=== PATIENT | female | born 1985 | race African-American/Black ===

== ENCOUNTER 2016-06-16 05:00 | Inpatient (IN) | payer OTHER ==
[2016-06-16] VITALS (43 sets, daily range): BP systolic 94–132; BP diastolic 53–80
[~2016-06-16] VITALS: Ht 172.7 cm; Wt 80.3 kg
[2016-06-16] MEDS ORDERED: AMPICILLIN INJECTION 2,000 MG in NS (IVPB) 50 ML IV ONE (05:51)
[2016-06-16] MEDS ORDERED: LACTATED RINGERS 1,000 ML IV SCH ×2 (05:51→10:16)
[2016-06-16] MEDS: D5 LR IV SOLUTION 1,000 ML IV SCH ×2 (05:55→13:00)
[2016-06-16] MEDS ORDERED: MISOPROSTOL 100 MCG (CYTOTEC) TAB PV ONE (06:00)
[2016-06-16] MEDS ORDERED: CATHETER FLUSH 10 ML SYR IV SCH ×2 (06:00→22:00)
[2016-06-16] MEDS ORDERED: MINERAL OIL CONCENTRATE 99.9% 15 ML UDC TOP PRN (06:00)
[2016-06-16] MEDS ORDERED: NS (IVPB) 50 ML ONE (06:05)
[2016-06-16] MEDS ORDERED: AMPICILLIN 2000 MG INJECTION (IM/IV) ONE (06:05)
[2016-06-16 06:18] LABS: BASOPHILS % (AUTO) 0 % (0-10); EOSINOPHILS # (AUTO) 0.2 10^3/uL (0.0-0.3); EOSINOPHILS % (AUTO) 3 % (0-10); LYMPHOCYTES # (AUTO) 1.9 X 10^3 (1.0-4.0); LYMPHOCYTES % (AUTO) 28 % (12-44); MEAN CORPUSCULAR HEMOGLOBIN 35 PG (25-34); MEAN CORPUSCULAR HGB CONC 35 G/DL (32-36); MEAN CORPUSCULAR VOLUME 100 FL (80-99); MEAN PLATELET VOLUME 11.7 FL (7.4-10.4); MONOCYTES # (AUTO) 0.5 X 10^3 (0.0-1.0); MONOCYTES % (AUTO) 7 % (0-12); NEUTROPHILS # (AUTO) 4.1 X 10^3 (1.8-7.8); NEUTROPHILS % (AUTO) 62 % (42-75); PLATELET COUNT 126 10^3/uL (130-400); RED BLOOD COUNT 3.22 10^6/uL (4.35-5.85); RED CELL DISTRIBUTION WIDTH 12.1 % (10.0-14.5); WHITE BLOOD COUNT 6.7 10^3/uL (4.3-11.0)
[2016-06-16] MEDS ORDERED: TERBUTALINE INJ 1 MG/ML (BRETHINE) AMP SC ONE (06:30)
--- NOTE | 2016-06-16 08:16 | History & Physical-OB ---
OB - Chief Complaint & HPI Date Date of Admission: Date of Admission: Jun 16, 2016 at 05:00 Chief Complaint/History OB-Reason for Admission/Chief: Induction of Labor Hx : 3 Hx Para: 2 Expected Date of Delivery: Jun 16, 2016 Gestational Age in Weeks: 40 Gestational Age in Days: 0 Indication for induction: other Other reason for admission: @ 40w0d by L=11 with hepatitis B (likely chronic, elevated transaminases in second/third trimester), mild thrombocytopenia - likely ITP ( stable at 38 wga), GBSuria, anemia. followed by Dr. Montgomery in [place] for Hep B. Had hep B with last delivery (in [place]) Fetus active no LOF VB CTX. Here for IOL for ITP/hep B History of Labs A+ Antibody neg RI Hep B positive, mildly elevated LFTs (stable, AST/ALT 60s and 70s at 38wga) HIV neg RPR NR Hep C neg GC/CT neg/neg GBSuria Allergies and Home Medications Allergies Coded Allergies: No Known Drug Allergies (Unverified , 06/16/16) OB - History Hx of Present Care: Yes Ultrasounds: Normal mid trimester US Obstetrical Complications: Other (anemia, GBSuria) Medical Complications: Other (chronic hep b, ITP) Information Induced Hypertension: No Maternal Gestational Diabetes: No Hemorrhage: No Obstetrical History Hx : 3 Hx Para: 2 Delivery History Adverse Rxn to Tranfusion: No Patient Past Medical History see above Social History/Family History HIV/AIDS: No Recent Infectious Disease Expo: No Sexually Transmitted Disease: No Alcohol Use: Denies Use Recreational Drug Use: No Immunizations Hepatitis A: Yes Hepatitis B: No Tetanus Booster (TDap): Less than 5yrs Rubella: immune RPR/VDRL: Negative GBS Status: Positive HBsAG: Positive OB - Admission Exam Physical Exam Vitals: see nursing documentation HEENT: NCAT Heart: Rhythm Normal Lungs: Clear Abdomen: Gravid Cervical Dilatation: 2cm Effacement: 0% Station: -2 Membranes: Intact Heart Rate: 140's Accelerations: Accelerations Present Decelerations: Variable Decelerations (one variable to 70s, 20 seconds in length, isolated) Short Term Variability: Present Accounting Practice Manager Variability: Average (6-25) Contractions on Admission: >10 Minutes Apart Chi Scoring Tool (Modified) Dilation (cm): 1-2cm (1) Effacement (%): 0-30% (0) Descent/Station: -2 (1) Cervix Consistency: Medium(1) Cervix Position: Middle/Mid-Position (1) Add 1 point for: Each previous vaginal delivery (1) Chi Score: 6 Labs Laboratory Tests Test 06/16/16 06:04 Range/Units White Blood Count 6.7 4.3-11.0 10^3/uL Red Blood Count 3.22 L 4.35-5.85 10^6/uL Hemoglobin 11.2 L 11.5-16.0 G/DL Hematocrit 32 L 35-52 % Mean Corpuscular Volume 100 H 80-99 FL Mean Corpuscular Hemoglobin 35 H 25-34 PG Mean Corpuscular Hemoglobin Concent 35 32-36 G/DL Red Cell Distribution Width 12.1 10.0-14.5 % Platelet Count 126 L 130-400 10^3/uL Mean Platelet Volume 11.7 H 7.4-10.4 FL Neutrophils (%) (Auto) 62 42-75 % Lymphocytes (%) (Auto) 28 12-44 % Monocytes (%) (Auto) 7 0-12 % Eosinophils (%) (Auto) 3 0-10 % Basophils (%) (Auto) 0 0-10 % Neutrophils # (Auto) 4.1 1.8-7.8 X 10^3 Lymphocytes # (Auto) 1.9 1.0-4.0 X 10^3 Monocytes # (Auto) 0.5 0.0-1.0 X 10^3 Eosinophils # (Auto) 0.2 0.0-0.3 10^3/uL Basophils # (Auto) 0.0 0.0-0.1 10^3/uL OB - Assessment/Plan/Diagnosis Plan Plan: Induction Other Plan 31 y/o @ 40w0d here for IOL Chronic Hep B with elevated transaminases Thrombocytopenia GBSuria Anemia Cytotec for cervical ripening, will plan pitocin following this ASVD Last viral load 10,000. Per Dr. Montgomery, no anti-viral therapy indicated at this time, will f/u with him in June 2016 KATIE SWENSON MD Jun 16, 2016 08:16
[2016-06-16] MEDS ORDERED: CALC600T12 PO (09:16)
[2016-06-16] MEDS ORDERED: SUFENTA 0.6MCG/ML BUPIVA 0.125 100 ML ONE (09:16)
[2016-06-16] MEDS ORDERED: PREN-53 PO (09:16)
[2016-06-16] MEDS ORDERED: AMPICILLIN INJECTION 1,000 MG in NS (IVPB) 50 ML IV SCH (10:00)
[2016-06-16] MEDS ORDERED: NALOXONE 0.4 MG/ML 1 ML (NARCAN) VIAL IV PRN ×2 (10:30)
[2016-06-16] MEDS ORDERED: OXYTOCIN/NORMAL SALINE 500 ML IV SCH ×2 (10:30→15:18)
[2016-06-16] MEDS ORDERED: diphenhydrAMINE 50 MG/ML INJ (BENADRYL) IV PRN (10:30)
[2016-06-16] MEDS ORDERED: EPIDURAL (SUFENTA 0.6MCG/ML BUPIVA 0.125%) 100 ML BAG EPI SCH (10:30)
[2016-06-16] MEDS ORDERED: METOCLOPRAMIDE INJ 10 MG/2 ML (REGLAN) IV PRN (10:30)
[2016-06-16] MEDS ORDERED: ONDANSETRON 4 MG/2 ML (SDV) Z0FRAN IV PRN (10:30)
--- NOTE | 2016-06-16 11:57 | Progress Note-Standard ---
Standard Progress Note Progress Notes/Assess & Plan Date Seen 06/16/16 Assess & Plan/Chief Complaint Labor Update Note Comfortable with epidural Vital Sign - Last 12Hours 06/16/16 06/16/16 06/16/16 06/16/16 05:30 06:30 07:00 07:25 Temp 98.1 Pulse 81 79 Resp 20 20 B/P (MAP) 113/61 107/59 O2 Delivery Room Air Room Air Room Air Room Air 06/16/16 06/16/16 06/16/16 06/16/16 07:30 08:30 09:30 09:45 Temp 98.2 Pulse 77 80 77 80 Resp 16 16 18 18 B/P (MAP) 109/60 102/58 108/58 117/56 O2 Delivery Room Air Room Air Room Air Room Air 06/16/16 06/16/16 06/16/16 06/16/16 09:50 09:55 10:00 10:05 Pulse 81 86 86 70 Resp 18 18 18 18 B/P (MAP) 123/80 132/62 117/56 Pulse Ox 100 100 100 100 O2 Delivery Room Air Room Air Room Air Room Air 06/16/16 06/16/16 06/16/16 06/16/16 10:10 10:13 10:15 10:18 Pulse 92 76 75 75 Resp 18 18 18 18 B/P (MAP) 115/64 101/58 110/58 115/57 Pulse Ox 100 100 100 100 O2 Delivery Room Air Room Air Room Air Room Air 06/16/16 06/16/16 06/16/16 06/16/16 10:21 10:25 10:28 10:30 Pulse 72 75 82 85 Resp 18 18 18 18 B/P (MAP) 117/62 114/58 101/66 116/58 Pulse Ox 100 100 100 100 O2 Delivery Room Air Room Air Room Air Room Air 06/16/16 06/16/16 06/16/16 06/16/16 10:35 10:40 10:45 11:00 Pulse 77 79 74 73 Resp 18 18 18 18 B/P (MAP) 118/58 116/67 114/62 115/53 Pulse Ox 100 100 100 100 O2 Delivery Room Air Room Air Room Air Room Air SVE 5/40/-2, AROM clear fluid FHR 140/mod savita/reactive TOCO 3/10 dysfunctional 31 y/o @ 40w0d here for IOL Hep B GBSuria s/p cytotec one dose, now pit/arom for IOL epidural in place continue ampicillin ASVD Labs Laboratory Tests 06/16/16 06:04 KATIE SWENSON MD Jun 16, 2016 11:57
[2016-06-16] MEDS ORDERED: DOCU-143 PO (12:54)
[2016-06-16] MEDS ORDERED: IBUP-1773 PO (12:54)
[2016-06-16] MEDS ORDERED: FERR325C PO (12:54)
[2016-06-16] MEDS ORDERED: LIDOCAINE/EPI 1%-1:200,000 (XYLOCAINE) 30 ML VIAL ONE (13:53)
--- NOTE | 2016-06-16 15:11 | OB Labor & Delivery Record ---
Vag Delivery Note Vag Delivery Note Date of Delivery: 06/16/16 Preoperative Diagnosis: Abril Solares is a 31 y/o @ 40w0d with IOL for chronic hepatitis B virus, GBSuria, thrombocytopenia Postoperative Diagnosis: Same Surgeon: Allison Lentz MD Anesthesia: Epidural Delivery Type: Spontaneous vaginal delivery Findings: Viable female , apgars 8/9, weight [id number] Lacerations: second degree perineal Intact placenta with 3 vessel cord. Nuchal cord x 1, no body cord or shoulder dystocia Estimated Blood Loss: 400 ml Complications: None Condition: Stable Description of Procedure: The patient is a 31 y/o @ 40w0d who presented for scheduled IOL. She was admitted and informed consent was obtained. Her labor course was remarkable for cytotec for cervical ripening, epidural for analgesia, pitocin and AROM with clear fluid. She progressed to complete dilatation and began to push. She was then set up for delivery. The infant's head was delivered atraumatically in the occiput anterior position. The shoulders and remainder of the 's body were then delivered without difficulty. Upon delivery, the head was held below the level of the perineum and the mouth and nares were bulb suctioned. The cord was doubly clamped and cut after the was placed on her mother's chest where she promptly received hepatitis B immune globulin and hepatitis B vaccination. An intact placenta with 3-vessel cord delivered via Brigitte and there was found to be minimal bleeding. Vigorous fundal massage was performed and the fundus was found to be firm. IV oxytocin was given. Examination of the vagina and perineum revealed a second degree perineal laceration repaired in the usual fashion with 3-0 vicryl suture. Following the repair, sponge, instrument and needle counts were correct. Mom and baby were both in stable condition in the labor suite. Vitals - Labs Vital Signs - I&O Vital Signs Date Time Temp Pulse Resp B/P (MAP) Pulse Ox O2 Delivery O2 Flow Rate FiO2 06/16/16 13:30 77 18 116/62 99 Room Air 06/16/16 13:15 81 18 116/59 100 Room Air 06/16/16 13:00 68 18 118/63 100 Room Air 06/16/16 12:45 68 18 109/61 100 Room Air 06/16/16 12:30 71 18 107/60 100 Room Air 06/16/16 12:15 99.3 69 18 113/58 100 Room Air 06/16/16 12:00 79 18 114/57 100 Room Air 06/16/16 11:45 71 18 106/59 100 Room Air 06/16/16 11:30 66 18 107/60 100 Room Air 06/16/16 11:15 72 18 103/58 100 Room Air 06/16/16 11:00 73 18 115/53 100 Room Air 06/16/16 10:45 74 18 114/62 100 Room Air 06/16/16 10:40 79 18 116/67 100 Room Air 06/16/16 10:35 77 18 118/58 100 Room Air 06/16/16 10:30 85 18 116/58 100 Room Air 06/16/16 10:28 82 18 101/66 100 Room Air 06/16/16 10:25 75 18 114/58 100 Room Air 06/16/16 10:21 72 18 117/62 100 Room Air 06/16/16 10:18 75 18 115/57 100 Room Air 06/16/16 10:15 75 18 110/58 100 Room Air 06/16/16 10:13 76 18 101/58 100 Room Air 06/16/16 10:10 92 18 115/64 100 Room Air 06/16/16 10:05 70 18 117/56 100 Room Air 06/16/16 10:00 86 18 100 Room Air 06/16/16 09:55 86 18 132/62 100 Room Air 06/16/16 09:50 81 18 123/80 100 Room Air 06/16/16 09:45 80 18 117/56 Room Air 06/16/16 09:30 77 18 108/58 Room Air 06/16/16 08:30 80 16 102/58 Room Air 06/16/16 07:30 98.2 77 16 109/60 Room Air 06/16/16 07:25 Room Air 06/16/16 07:00 Room Air 06/16/16 06:30 79 20 107/59 Room Air 06/16/16 05:30 98.1 81 20 113/61 Room Air I & O 06/16/16 07:00 Intake Total 500 ml Balance 500 ml Labs Laboratory Tests 06/16/16 06:04: White Blood Count 6.7, Red Blood Count 3.22L, Hemoglobin 11.2L, Hematocrit 32L, Mean Corpuscular Volume 100H, Mean Corpuscular Hemoglobin 35H, Mean Corpuscular Hemoglobin Concent 35, Red Cell Distribution Width 12.1, Platelet Count 126L, Mean Platelet Volume 11.7H, Neutrophils (%) (Auto) 62, Lymphocytes (%) (Auto) 28 , Monocytes (%) (Auto) 7, Eosinophils (%) (Auto) 3, Basophils (%) (Auto) 0, Neutrophils # (Auto) 4.1, Lymphocytes # (Auto) 1.9, Monocytes # (Auto) 0.5, Eosinophils # (Auto) 0.2, Basophils # (Auto) 0.0 ALLISON LENTZ MD Jun 16, 2016 15:11
--- NOTE | 2016-06-16 15:12 | Discharge Inst-Women's Service ---
Discharge Inst-Women's Serv Depart Medication/Instructions New, Converted or Re-Newed RX: RX on Chart Final Diagnosis TIUP, chronic hepatitis B Consults/Follow Up Additional Follow Up: Yes Orders/Referrals [address] Lentz Activity Activity: Activity as Tolerated Driving Instructions: You May Drive NO SMOKING: NO SMOKING Nothing Inside Vagina: No Douching, No [place], No Tampons Diet Discharge Diet: No Restrictions Symptoms to Report to : Bleeding Excessive, Pain Increased, Fever Over 101 Degrees F, Pain/Pressure in Chest, Vaginal Bleeding Increase, Dizziness/Fainting , Nausea/Vomiting, Shortness of Breath For Any Problems or Questions: Contact Your Physician, Go to Emergency Room KATIE LENTZ MD Jun 16, 2016 15:12
[2016-06-16] MEDS ORDERED: WITCH HAZEL(TUCKS) 40 EA JAR TOP PRN (15:30)
[2016-06-16] MEDS ORDERED: MEASLES,MUMPS,RUBELLA 1 EA INJ SQ ONE (15:30)
[2016-06-16] MEDS ORDERED: BENZOCAINE/MENTHOL (DERMOPLAST) 56 ML CAN TP PRN (15:30)
[2016-06-16] MEDS: DOCUSATE SODIUM 100 MG (COLACE) CAP PO SCH (21:50)
[2016-06-16] MEDS: IBUPROFEN 600 MG (MOTRIN) TAB PO SCH (21:50)
[2016-06-17 00:05] VITALS: BP 94/53
[2016-06-17 04:05] VITALS: BP 108/68
[2016-06-17] MEDS: IBUPROFEN 600 MG (MOTRIN) TAB PO SCH (04:06)
[2016-06-17 05:42] LABS: BASOPHILS % (AUTO) 0 % (0-10); EOSINOPHILS # (AUTO) 0.2 10^3/uL (0.0-0.3); EOSINOPHILS % (AUTO) 3 % (0-10); LYMPHOCYTES # (AUTO) 2.4 X 10^3 (1.0-4.0); LYMPHOCYTES % (AUTO) 26 % (12-44); MEAN CORPUSCULAR HEMOGLOBIN 34 PG (25-34); MEAN CORPUSCULAR HGB CONC 34 G/DL (32-36); MEAN CORPUSCULAR VOLUME 100 FL (80-99); MEAN PLATELET VOLUME 11.9 FL (7.4-10.4); MONOCYTES # (AUTO) 0.6 X 10^3 (0.0-1.0); MONOCYTES % (AUTO) 7 % (0-12); NEUTROPHILS % (AUTO) 65 % (42-75); PLATELET COUNT 106 10^3/uL (130-400); RED BLOOD COUNT 3.02 10^6/uL (4.35-5.85); RED CELL DISTRIBUTION WIDTH 11.9 % (10.0-14.5); WHITE BLOOD COUNT 9.3 10^3/uL (4.3-11.0)
[2016-06-17] MEDS ORDERED: PRENATAL VITAMIN 1 EA TAB PO SCH (07:00)
[2016-06-17 07:45] VITALS: BP 96/63
[2016-06-17] MEDS ORDERED: FERROUS SULF 325 MG (IRON) TAB PO SCH (09:00)
[2016-06-17] MEDS: DOCUSATE SODIUM 100 MG (COLACE) CAP PO SCH (09:00)
--- NOTE | 2016-06-17 11:52 | Progress Note-Standard ---
Standard Progress Note Progress Notes/Assess & Plan Progress/Assessment & Plan Patient doing well PPD 1 NVD. Reports cramping with , but otherwise doing well. Ambulating and voiding freely. Vital Sign - Last 24 Hours 06/16/16 06/16/16 06/16/16 06/16/16 12:00 12:15 12:30 12:45 Temp 99.3 Pulse 79 69 71 68 Resp 18 18 18 18 B/P (MAP) 114/57 113/58 107/60 109/61 Pulse Ox 100 100 100 100 O2 Delivery Room Air Room Air Room Air Room Air 06/16/16 06/16/16 06/16/16 06/16/16 13:00 13:15 13:30 13:45 Temp 97.5 Pulse 68 81 77 78 Resp 18 18 18 18 B/P (MAP) 118/63 116/59 116/62 122/61 Pulse Ox 100 100 99 100 O2 Delivery Room Air Room Air Room Air Room Air 06/16/16 06/16/16 06/16/16 06/16/16 14:00 14:15 14:30 14:43 Pulse 71 76 87 87 Resp 18 18 18 18 B/P (MAP) 117/64 109/64 114/67 Pulse Ox 100 100 100 100 O2 Delivery Room Air Room Air Room Air Room Air 06/16/16 06/16/16 06/16/16 06/16/16 14:51 14:56 15:11 15:26 Temp 99.0 98.3 Pulse 73 71 69 72 Resp 18 18 18 18 B/P (MAP) 113/57 112/57 114/61 118/57 O2 Delivery Room Air Room Air Room Air Room Air 06/16/16 06/16/16 06/16/16 06/17/16 15:55 16:24 22:00 00:05 Temp 98.3 97.8 Pulse 68 74 69 73 Resp 18 18 18 18 B/P (MAP) 122/58 111/55 111/69 94/53 Pulse Ox 97 99 O2 Delivery Room Air Room Air Room Air 06/17/16 04:05 Temp 97.6 Pulse 63 Resp 18 B/P (MAP) 108/68 Pulse Ox 97 Intake and Output 06/16/16 06/16/16 06/17/16 15:00 23:00 07:00 Intake Total 2000 ml 500 ml Balance 2000 ml 500 ml Laboratory Tests Test 06/17/16 05:25 Range/Units White Blood Count 9.3 4.3-11.0 10^3/uL Red Blood Count 3.02 L 4.35-5.85 10^6/uL Hemoglobin 10.4 L 11.5-16.0 G/DL Hematocrit 30 L 35-52 % Mean Corpuscular Volume 100 H 80-99 FL Mean Corpuscular Hemoglobin 34 25-34 PG Mean Corpuscular Hemoglobin Concent 34 32-36 G/DL Red Cell Distribution Width 11.9 10.0-14.5 % Platelet Count 106 L 130-400 10^3/uL Mean Platelet Volume 11.9 H 7.4-10.4 FL Neutrophils (%) (Auto) 65 42-75 % Lymphocytes (%) (Auto) 26 12-44 % Monocytes (%) (Auto) 7 0-12 % Eosinophils (%) (Auto) 3 0-10 % Basophils (%) (Auto) 0 0-10 % Neutrophils # (Auto) 6.0 1.8-7.8 X 10^3 Lymphocytes # (Auto) 2.4 1.0-4.0 X 10^3 Monocytes # (Auto) 0.6 0.0-1.0 X 10^3 Eosinophils # (Auto) 0.2 0.0-0.3 10^3/uL Basophils # (Auto) 0.0 0.0-0.1 10^3/uL Uterine fundus firm and palpated below umbilicus Diagnosis: PPD 1 NVD Hep B GBSuria P: DC later today Patient to room in until dismissed TYSON AMBROSIO DO Jun 17, 2016 11:52 am
[2016-06-17 13:00] VITALS: BP 138/72
--- NOTE | 2016-06-17 14:06 | Anesthesia-Regional Post-Op ---
Regional Patient Condition Mental Status: Alert, Oriented x3 Circulation: Same as Pre-Op Headache: Absent Sensation: Full Recovery Motor Block: Absent Post Op Complications Complications None Follow Up Care/Instructions Patient Instructions None needed. Anesthesia/Patient Condition Patient is doing well, no complaints, stable vital signs, no apparent adverse anesthesia problems. No complications reported per nursing. D/C home per [facility] Criteria: Yes HALLIE MORALES CRNA Jun 17, 2016 14:06
== END 2016-06-17 13:20 | disposition home or self-care (01) | DRG 774 ==
LOC: LDRP 05:00
PROVIDERS: ADMIT Obstetrics & Gynecology; ATTEND Obstetrics & Gynecology
PROC: 10E0XZZ Delivery of Products of Conception, External Approach (ICD-10-PCS; principal; 2016-06-16)
PROC: 0KQM0ZZ Repair Perineum Muscle, Open Approach (ICD-10-PCS; 2016-06-16)
PROC: 3E0DXGC Introduction of Other Therapeutic Substance into Mouth and Pharynx, External Approach (ICD-10-PCS; 2016-06-16)
DX: O98.42 Viral hepatitis complicating childbirth (principal); B19.10 Unspecified viral hepatitis B without hepatic coma; O99.13 Other diseases of the blood and blood-forming organs and certain disorders involving the immune mechanism complicating the puerperium; D69.3 Immune thrombocytopenic purpura; O70.1 Second degree perineal laceration during delivery; O69.81X0 Labor and delivery complicated by cord around neck, without compression, not applicable or unspecified; O99.02 Anemia complicating childbirth; D64.9 Anemia, unspecified; Z37.0 Single live birth; Z3A.40 40 weeks gestation of pregnancy
CPT/HCPCS: 36415; 85025; 86850; 86900; 86901; 88307

== ENCOUNTER 2017-07-14 10:50 | Emergency (ER) | payer SELFPAY ==
[~2017-07-14] VITALS: Ht 170.2 cm; Wt 88.9 kg
[~2017-07-14 10:50] MED LIST: CALC600T12 PO; DOCU-143 PO; FERR325C PO; IBUP-1773 PO; PREN-53 PO
--- NOTE | 2017-07-14 11:08 | ED General ---
General Stated Complaint: SYNCOPE Source of Information: Patient Exam Limitations: No Limitations History of Present Illness Date Seen by Provider: July 14, 2017 Time Seen by Provider: 11:05 Initial Comments to ER per EMS from [facility] with reports of syncope. Patients tawana IUD fell out last month and it was replaced at [facility] on the of this month. For the past 2 days she's had heavy vaginal bleeding and some mild suprapubic cramping. She has used 5 super tampons in the past 24 hours. She's been passing clots. She has felt lightheaded and dizzy for the past 2 days. She was evaluated at [facility] and then sent to the pharmacy. She was sitting down and her name was called at the pharmacy that she stood up. A few seconds after standing she collapsed to the floor. EMS was summoned and she presents to the emergency room alert and oriented and states that she feels fine and just wants to go home. Timing/Duration: 1-2 Days Severity: Moderate Associated Systoms: No Chest Pain, No Cough, No Diaphoresis, No Fever/Chills, No Headaches, No Malaise, No Nausea/Vomiting, No Rash; Syncope Allergies and Home Medications Allergies Coded Allergies: No Known Drug Allergies (Unverified , 06/16/16) Home Medications Calcium Carbonate 600 Mg Tablet, Unknown Dose PO DAILY, (Reported) Docusate Sodium 100 Mg Capsule, 100 MG PO BID PRN for CONSTIPATION-1ST LINE Prescribed by: KATIE SWENSON on 06/16/16 1254 Ferrous Sulfate 325 Mg Capsule.er, 325 MG PO DAILY Prescribed by: KATIE SWENSON on 06/16/16 1254 Ibuprofen 600 Mg Tablet, 600 MG PO Q6H Prescribed by: KATIE SWENSON on 06/16/16 1254 Vzy116/Iron Fumarate/FA/Dss 1 Each Tablet, 1 EACH PO DAILY, (Reported) Patient Home Medication List Home Medication List Reviewed: Yes Review of Systems Constitutional: see HPI EENTM: see HPI Respiratory: no symptoms reported Cardiovascular: no symptoms reported Genitourinary: no symptoms reported Musculoskeletal: no symptoms reported Skin: no symptoms reported Psychiatric/Neurological: No Symptoms Reported Hematologic/Lymphatic: No Symptoms Reported Past Qdcmotl-Oiwqqi-Uvohcr Hx Patient Social History Recent Hopitalizations: No Immunizations Up To Date Tetanus Booster (TDap): Less than 5yrs PED Vaccines UTD: Yes Seasonal Allergies Seasonal Allergies: No Past Medical History Surgeries: No Respiratory: Yes (NOT DIAGNOSED BUT USE INHALER IN PAST YEARS) Asthma Currently Using CPAP: No Currently Using BIPAP: No Cardiac: No Neurological: No Female Reproductive Disorders: Denies Sexually Transmitted Disease: No HIV/AIDS: No Bladder Infection Hepatitis Musculoskeletal: No Endocrine: No HEENT: No Loss of Vision: Denies Hearing Impairment: Denies Cancer: No Psychosocial: No Integumentary: No Blood Disorders: No Adverse Reaction/Blood Tranf: No Family Medical History Hypertension 19 MOTHER Physical Exam Vital Signs Vital Signs - First Documented 07/14/17 11:07 Pulse 90 Resp 18 B/P (MAP) 143/83 (103) Pulse Ox 99 O2 Delivery Room Air Capillary Refill : General Appearance: No Apparent Distress, WD/WN Eyes: Bilateral Eye Normal Inspection, Bilateral Eye PERRL, Bilateral Eye EOMI HEENT: PERRL/EOMI, TMs Normal Neck: Full Range of Motion, Normal Inspection Respiratory: No Accessory Muscle Use, No Respiratory Distress Cardiovascular: Regular Rate, Rhythm, Normal Peripheral Pulses Gastrointestinal: Normal Bowel Sounds, Non Tender, Soft Extremity: Normal Capillary Refill, Normal Inspection Neurologic/Psychiatric: Alert, Oriented x3, No Motor/Sensory Deficits Skin: Normal Color, Warm/Dry Progress/Results/Core Measures Suspected Sepsis SIRS Temperature: Pulse: Respiratory Rate: Laboratory Tests 07/14/17 11:34: White Blood Count 3.6L Blood Pressure / Mean: Laboratory Tests 07/14/17 11:34: Creatinine 0.79, Platelet Count 151, Total Bilirubin 0.5 Results/Orders Lab Results Laboratory Tests Test 07/14/17 11:15 07/14/17 11:34 Range/Units Urine Color YELLOW Urine Clarity VERY CLOUDY H Urine pH 8 5-9 Urine Specific [place] 1.010 L 1.016-1.022 Urine Protein 1+ H NEGATIVE Urine Glucose (UA) NEGATIVE NEGATIVE Urine Ketones NEGATIVE NEGATIVE Urine Nitrite NEGATIVE NEGATIVE Urine Bilirubin NEGATIVE NEGATIVE Urine Urobilinogen NORMAL NORMAL MG/DL Urine Leukocyte Esterase 1+ H NEGATIVE Urine RBC (Auto) 5+ H NEGATIVE Urine RBC TNTC H /HPF Urine WBC 0-2 /HPF Urine Crystals NONE /LPF Urine Bacteria NEGATIVE /HPF Urine Casts NONE /LPF Urine Mucus NEGATIVE /LPF Urine Culture Indicated NO Urine Opiates Screen NEGATIVE NEGATIVE Urine Oxycodone Screen NEGATIVE NEGATIVE Urine Methadone Screen NEGATIVE NEGATIVE Urine Propoxyphene Screen NEGATIVE NEGATIVE Urine Barbiturates Screen NEGATIVE NEGATIVE Ur Tricyclic Antidepressants Screen NEGATIVE NEGATIVE Urine Phencyclidine Screen NEGATIVE NEGATIVE Urine Amphetamines Screen NEGATIVE NEGATIVE Urine Methamphetamines Screen NEGATIVE NEGATIVE Urine Benzodiazepines Screen NEGATIVE NEGATIVE Urine Cocaine Screen NEGATIVE NEGATIVE Urine Cannabinoids Screen NEGATIVE NEGATIVE White Blood Count 3.6 L 4.3-11.0 10^3/uL Red Blood Count 4.00 L 4.35-5.85 10^6/uL Hemoglobin 13.0 11.5-16.0 G/DL Hematocrit 38 35-52 % Mean Corpuscular Volume 96 80-99 FL Mean Corpuscular Hemoglobin 33 25-34 PG Mean Corpuscular Hemoglobin Concent 34 32-36 G/DL Red Cell Distribution Width 11.4 10.0-14.5 % Platelet Count 151 130-400 10^3/uL Mean Platelet Volume 11.4 H 7.4-10.4 FL Neutrophils (%) (Auto) 41 L 42-75 % Lymphocytes (%) (Auto) 48 H 12-44 % Monocytes (%) (Auto) 6 0-12 % Eosinophils (%) (Auto) 5 0-10 % Basophils (%) (Auto) 0 0-10 % Neutrophils # (Auto) 1.5 L 1.8-7.8 X 10^3 Lymphocytes # (Auto) 1.8 1.0-4.0 X 10^3 Monocytes # (Auto) 0.2 0.0-1.0 X 10^3 Eosinophils # (Auto) 0.2 0.0-0.3 10^3/uL Basophils # (Auto) 0.0 0.0-0.1 10^3/uL Sodium Level 141 135-145 MMOL/L Potassium Level 4.1 3.6-5.0 MMOL/L Chloride Level 109 H 98-107 MMOL/L Carbon Dioxide Level 22 21-32 MMOL/L Anion Gap 10 5-14 MMOL/L Blood Urea Nitrogen 8 7-18 MG/DL Creatinine 0.79 0.60-1.30 MG/DL Estimat Glomerular Filtration Rate > 60 BUN/Creatinine Ratio 10 Glucose Level 86 70-105 MG/DL Calcium Level 9.2 8.5-10.1 MG/DL Total Bilirubin 0.5 0.1-1.0 MG/DL Aspartate Amino Transf (AST/SGOT) 20 5-34 U/L Alanine Aminotransferase (ALT/SGPT) 14 0-55 U/L Alkaline Phosphatase 64 40-136 U/L Total Protein 6.8 6.4-8.2 GM/DL Albumin 4.2 3.2-4.5 GM/DL My Orders Orders - JAYY BILLINGSLEY APRN Chest 1 View, Ap/Pa Only (07/14/17 10:58) Continuous Ekg Monitoring (07/14/17 10:58) Ekg Tracing (07/14/17 10:58) Cbc With Automated Diff (07/14/17 10:58) Comprehensive Metabolic Panel (07/14/17 10:58) Ua Culture If Indicated (07/14/17 10:58) Drug Screen Stat (Urine) (07/14/17 10:58) Urine Bedside (07/14/17 10:58) Ns Iv 1000 Ml (Sodium Chloride 0.9%) (07/14/17 12:15) Vital Signs/I&O 07/14/17 11:07 Pulse 90 Resp 18 B/P (MAP) 143/83 (103) Pulse Ox 99 O2 Delivery Room Air Capillary Refill : Departure Communication (Admissions) 1214- atient feels better while at rest and laying down but upon standing she does become very unsteady on her feet Impression Primary Impression: Orthostatic syncope Disposition: 01 HOME, SELF-CARE Condition: Stable Departure-Patient Inst. Decision time for Depature: 13:22 Referrals: [facility] (PCP/Family) Primary Care Physician Patient Instructions: Syncope (Fainting) (DC) Add. Discharge Instructions: 1. Return to ER forgreater than one tampon use every 2 hours recurrent lightheadedness or passing out. Call your doctor to make a follow-up appointment for tomorrow. Work/School Note: Work Release Form Date Seen in the Emergency Department: July 14, 2017 Return to Work: July 15, 2017 JAYY BILLINGSLEY APRN July 14, 2017 11:08
[2017-07-14 11:29] LABS: BILIRUBIN,URINE NEGATIVE (NEGATIVE); CLARITY,URINE VERY CLOUDY; COLOR,URINE YELLOW; GLUCOSE, URINE (UA) NEGATIVE (NEGATIVE); KETONES,URINE NEGATIVE (NEGATIVE); LEUKOCYTE ESTERASE ,URINE 1+ (NEGATIVE); NITRITE,URINE NEGATIVE (NEGATIVE); PH,URINE 8 (5-9); PROTEIN,URINE 1+ (NEGATIVE); UROBILINOGEN,URINE NORMAL (NORMAL)
[2017-07-14 11:40] LABS: BACTERIA,URINE NEGATIVE /HPF; RBC,URINE TNTC /HPF; WBC,URINE 0-2 /HPF
[2017-07-14 11:44] LABS: AMPHETAMINE SCREEN, URINE NEGATIVE (NEGATIVE); BARBITURATE SCREEN URINE NEGATIVE (NEGATIVE); BENZODIAZEPINES SCREEN URINE NEGATIVE (NEGATIVE); CANNABINOID SCREEN, URINE NEGATIVE (NEGATIVE); COCAINE SCREEN URINE NEGATIVE (NEGATIVE); METHADONE STAT NEGATIVE (NEGATIVE); METHAMPHETAMINE SCREEN URINE S NEGATIVE (NEGATIVE); OPIATE SCREEN URINE NEGATIVE (NEGATIVE); OXYCODONE STAT NEGATIVE (NEGATIVE); PROPOXYPHENE STAT NEGATIVE (NEGATIVE); TRICYCLIC ANTIDEPRESSANTS SCRE NEGATIVE (NEGATIVE)
[2017-07-14 11:45] VITALS: BP_SYST 125; BP_SYST 131; BP_SYST 132; BP_DIAS 82; BP_DIAS 83; BP_DIAS 87
[2017-07-14 11:51] LABS: BASOPHILS % (AUTO) 0 % (0-10); EOSINOPHILS # (AUTO) 0.2 10^3/uL (0.0-0.3); EOSINOPHILS % (AUTO) 5 % (0-10); HEMATOCRIT 38 % (35-52); LYMPHOCYTES # (AUTO) 1.8 X 10^3 (1.0-4.0); LYMPHOCYTES % (AUTO) 48 % (12-44); MEAN CORPUSCULAR HEMOGLOBIN 33 PG (25-34); MEAN CORPUSCULAR HGB CONC 34 G/DL (32-36); MEAN CORPUSCULAR VOLUME 96 FL (80-99); MEAN PLATELET VOLUME 11.4 FL (7.4-10.4); MONOCYTES # (AUTO) 0.2 X 10^3 (0.0-1.0); MONOCYTES % (AUTO) 6 % (0-12); NEUTROPHILS # (AUTO) 1.5 X 10^3 (1.8-7.8); NEUTROPHILS % (AUTO) 41 % (42-75); PLATELET COUNT 151 10^3/uL (130-400); RED CELL DISTRIBUTION WIDTH 11.4 % (10.0-14.5); WHITE BLOOD COUNT 3.6 10^3/uL (4.3-11.0)
[2017-07-14 12:09] LABS: ALANINE AMINOTRANSFERASE 14 U/L (0-55); ALBUMIN 4.2 GM/DL (3.2-4.5); ALKALINE PHOSPHATASE 64 U/L (40-136); BILIRUBIN,TOTAL 0.5 MG/DL (0.1-1.0); BUN/CREATININE RATIO 10; CALCIUM 9.2 MG/DL (8.5-10.1); CARBON DIOXIDE 22 MMOL/L (21-32); CHLORIDE 109 MMOL/L (98-107); CREATININE SERUM 0.79 MG/DL (0.60-1.30); GFR ESTIMATED > 60; GLUCOSE 86 MG/DL (70-105); POTASSIUM 4.1 MMOL/L (3.6-5.0); SODIUM 141 MMOL/L (135-145); TOTAL PROTEIN 6.8 GM/DL (6.4-8.2)
[2017-07-14] MEDS: NS IV 1000 ML 1,000 ML IV SCH (13:02)
--- NOTE | 2017-07-14 13:36 | Diagnostic Imaging Report ---
INDICATION: Increased vaginal bleeding x2 days. Multiple syncopal episodes. Lightheadedness, weakness, fatigue. TECHNIQUE: Single view chest 12:31 PM. CORRELATION STUDY: None FINDINGS: The heart size, mediastinal configuration and pulmonary vascularity are within normal limits. The lungs are clear with no consolidating infiltrate. There is no significant effusion or pneumothorax. IMPRESSION: 1. Negative portable chest. Dictated by: Dictated on workstation # [id number]
[2017-07-14 13:43] VITALS: BP 131/82
== END 2017-07-14 13:43 | disposition home or self-care (01) ==
LOC: EDUNIT# 10:50 → ER 10:52
DX: R55 Syncope and collapse (principal); J45.909 Unspecified asthma, uncomplicated; Z87.448 Personal history of other diseases of urinary system
CPT/HCPCS: 36415; 71045; 80053; 80306; 81000; 84703; 85025; 93005; 96360